=== PATIENT | female | born 1930 | race Caucasian/White ===

== ENCOUNTER 2017-12-22 15:53 | Emergency (ER) | payer OTHER, MEDICARE ==
--- NOTE | 2017-12-22 15:54 | PDOC ---
History of Present Illness - General Chief Complaint: Urinary Problem Stated Complaint: URINE PROBLEM Time Seen by Provider: 12/22/17 15:54 History Source: Patient Exam Limitations: No Limitations - History of Present Illness Initial Comments: 12/22/17 16:21 87 year old female with PMH frequent UTIs, scoliosis, arthritis presents to ED complaining of dysuria x2 weeks and right back pain since today. She denies fever, chills, nausea, vomiting, diarrhea, abdominal pain, lightheadedness, chest pain, shortness of breath, weakness. PCP - Dr. Golden Past History - Past Medical History Allergies/Adverse Reactions: Allergies Allergy/AdvReac Type Severity Reaction Status Date / Time aspirin AdvReac Mild Nausea Verified 12/22/17 16:25 Home Medications: Ambulatory Orders Acetaminophen [Tylenol] 325 mg PO BID PRN tablet 03/15/13 Cholecalciferol (Vitamin D3) [Vitamin D3] 2,000 unit PO DAILY tablet 03/09/14 [place]-3 Fatty Acids [Fish Oil] 500 mg PO DAILY capsule 03/09/14 Miconazole Nitrate [Monistat Topical Cream -] 1 applic TP DAILY 7 Days #7 tube 12/22/17 Sulfamethoxazole/Trimethoprim [Bactrim Ds -] 1 tab PO BID 14 Days #27 tablet Anemia: No Asthma: No Cancer: No Cardiac Disorders: No CVA: No COPD: No Dementia: No Diabetes: No Dialysis: No GI Disorders: No Disorders: No HTN: Yes Hypercholesterolemia: No Kidney Stones: Yes Liver Disease: No Seizures: No Thyroid Disease: Yes - Surgical History Abdominal Surgery: Yes Appendectomy: No Cardiac Surgery: No Cholecystectomy: No Lung Surgery: No Neurologic Surgery: No - Immunization History Td Vaccination: No Immunization Up to Date: No - Suicide/Smoking/Psychosocial Hx Smoking Status: No Smoking History: Never smoked Number of Cigarettes Smoked Daily: 0 Review of Systems - Review of Systems Able to Perform ROS?: Yes Comments:: 12/22/17 16:22 General: denies fever, chills, night sweats, generalized weakness. HEENT: denies sore throat, rhinorrhea, ear pain. Heart: denies chest pain, palpitations, syncope, lower extremity swelling. Respiratory: denies shortness of breath, cough, sputum production, hematemesis. Abdomen: denies abdominal pain, nausea, vomiting, diarrhea, constipation, blood in stool. : admits to dysuria. denies urinary frequency, hematuria, urinary incontinence. Back: admits to back pain. denies flank pain. Neurological: denies headache, dizziness, numbness, tingling, weakness. Skin: denies rash, laceration, abrasion. *Physical Exam - Physical Exam Comments: 12/22/17 16:22 Appearance: comfortable. obese. HEENT: head is normocephalic, atraumatic. EOMI. PERRLA. Neck: supple. Full ROM. Heart: regular rhythm. no murmurs, rubs or gallops. Lungs: clear to auscultation bilaterally. no crackles, rhonchi or wheezing. no stridor. Abdomen: soft, nontender. normal bowel sounds. no rebound, guarding, masses. Back: no CVA tenderness. tenderness to palpation of right lateral thoracic back area. Extremities: Peripheral pulses intact. No lower extremity edema. Neurological: Alert. Oriented x3. CN 2-12 grossly intact. Moves all four extremities. ED Treatment Course - LABORATORY CBC & Chemistry Diagram: 12/22/17 16:35 12/22/17 16:35 Medical Decision Making - Medical Decision Making 12/22/17 16:23 87 year old female with PMH multiple UTIs, scoliosis, arthritis, HTN presents to ED complaining of 2 weeks of dysuria and right back pain today. No fever, chills, chest pain, shortness of breath, abdominal pain, nausea, vomiting, weakness. No CVA tenderness. Pain to palpation of right lateral thoracic area. Initial Vital Signs Temp Pulse Resp BP Pulse Ox 99.0 F 50 L 18 176/74 97 12/22/17 15:54 12/22/17 15:54 12/22/17 15:54 12/22/17 15:54 12/22/17 15:54 Afebrile. Bradycardic at 50 bpm. Hypertensive 176/74. No hypoxia. Pending UA, UC, CMP, CBC, Blood cultures. 12/22/17 18:24 No leukocytosis. *DC/Admit/Observation/Transfer Diagnosis at time of Disposition: Vulvovaginal candidiasis - Discharge Dispostion Disposition: HOME Condition at time of disposition: Good Decision to Admit order: No - Prescriptions Prescriptions: Miconazole Nitrate [Monistat Topical Cream -] 1 applic TP DAILY 7 Days #7 tube Sulfamethoxazole/Trimethoprim [Bactrim Ds -] 1 tab PO BID 14 Days #27 tablet - Referrals Referrals: Aiden Golden MD [Primary Care Provider] - - Patient Instructions Printed Discharge Instructions: DI for Vaginal Yeast Infection, DI for Urinary Tract Infection (UTI) Additional Instructions: You were seen today for burning with urination. Your urine analysis revealed a urinary tract infection. You have a vaginal yeast infection. You were given the first dose of an antibiotic to treat your urinary infection. I have sent a prescription for Monistat to treat your yeast infection to your pharmacy. I have prescribed you Bactrim (antibiotic) and sent the prescription to your pharmacy. Take all of your pills as instructed, do not miss any doses of your antibiotic. Take probiotics along with your antibiotics. Stay hydrated, drink lots of clear fluids like water. Please follow up with your primary care provider within 7 days. Please bring the paperwork given to you today with you for this appointment. Return to the Emergency Department for increasing pain, blood in urine, flank pain, back pain, abdominal pain, fever, chills, chest pain, shortness of breath , nausea, vomiting or any other new, worsening or concerning symptoms. - Post Discharge Activity
[2017-12-22 16:25] VITALS: BP 176/74; PULSE 50; TEMP 99; BMI 36.8
--- NOTE | 2017-12-22 16:27 | PDOC ---
Attending Attestation - Resident Resident Name: Ebonie Beth - ED Attending Attestation I have performed the following: I have examined & evaluated the patient, The case was reviewed & discussed with the resident, I agree w/resident's findings & plan, Exceptions are as noted - HPI HPI: 12/22/17 16:25 87 yo F c/ hx of HTN, frequent UTIs presents with dysuria x 2 weeks. Reports two weeks of persistent fevers. Noted today that there was some R sided flank pain. No fevers, chills, nausea, vomiting, abdominal pain. Came into the ED for an evaluation. - Physicial Exam PE: 12/22/17 16:26 GENERAL: Awake, alert, and fully oriented, in no acute distress HEAD: No signs of trauma EYES: EOMI, sclera anicteric, conjunctiva clear ENT: Auricles normal inspection, hearing grossly normal, nares patent, Moist mucosa NECK: Normal ROM, supple LUNGS: Breath sounds equal, clear to auscultation bilaterally. No wheezes, and no crackles HEART: Regular rate and rhythm, normal S1 and S2, no murmurs, rubs or gallops ABDOMEN: Soft, nontender, No guarding, no rebound. No masses BACK: mild R sided CVA tenderness. EXTREMITIES: Normal range of motion, no edema. No clubbing or cyanosis. No cords, erythema, or tenderness NEUROLOGICAL: Cranial nerves II through XII grossly intact. Normal speech, normal gait SKIN: Warm, Dry, normal turgor, no rashes or lesions noted. - Medical Decision Making 12/22/17 16:26 Vital Signs Temp Pulse Resp BP Pulse Ox 99.0 F 50 L 18 176/74 97 12/22/17 15:54 12/22/17 15:54 12/22/17 15:54 12/22/17 15:54 12/22/17 15:54 I suspect that the patient may have pyelonephritis. Labs, UA/UC, blood cultures, reassess. 12/22/17 16:52 Pt also reports that she has been using a lot of soap and water to clean her vagina. Today, she started to notice significant skin irritation around her vagina. Denies vaginal discharge. External pelvic exam demonstrates erythematous, tender rash in and around the vagina suggestive of fungal vaginitis. Will prescribe monostat cream. 12/22/17 17:46 CBC, BMP 12/22/17 16:35 12/22/17 16:35 CMP Sodium 135 mmol/L (136-145) L 12/22/17 16:35 Potassium 3.8 mmol/L (3.5-5.1) 12/22/17 16:35 Chloride 102 mmol/L (98-107) 12/22/17 16:35 Carbon Dioxide 28 mmol/L (22-28) 12/22/17 16:35 Anion Gap 5 (8-16) L 12/22/17 16:35 BUN 17 mg/dl (7-18) 12/22/17 16:35 Creatinine 0.7 mg/dl (0.6-1.3) 12/22/17 16:35 Creat Clearance w eGFR > 60 (>60) 12/22/17 16:35 Random Glucose 97 mg/dl (74-106) D 12/22/17 16:35 Calcium 8.7 mg/dl (8.4-10.2) 12/22/17 16:35 Total Bilirubin 0.6 mg/dl (0.2-1.0) 12/22/17 16:35 AST 21 U/L (10-42) 12/22/17 16:35 ALT 13 U/L (10-40) 12/22/17 16:35 Alkaline Phosphatase 68 U/L (32-92) 12/22/17 16:35 Total Protein 6.6 g/dl (6.4-8.3) 12/22/17 16:35 Albumin 3.8 g/dl (3.5-5.0) 12/22/17 16:35 12/22/17 18:19 Urine Test Results Urine Color Yellow 12/22/17 16:25 Urine Appearance Clear 12/22/17 16:25 Urine pH 6.5 (4.5-8) 12/22/17 16:25 Ur Specific [place] 1.010 (1.005-1.025) 12/22/17 16:25 Urine Protein Negative (NEGATIVE) 12/22/17 16:25 Urine Glucose (UA) Trace (NEGATIVE) 12/22/17 16:25 Urine Ketones Negative (NEGATIVE) 12/22/17 16:25 Urine Blood Negative (NEGATIVE) 12/22/17 16:25 Urine Nitrite Negative (NEGATIVE) 12/22/17 16:25 Urine Bilirubin Negative (NEGATIVE) 12/22/17 16:25 Ur Leukocyte Esterase Trace (NEGATIVE) H 12/22/17 16:25 Trace leukocytes. No elevated WBC. Pt otherwise nontoxic appearing. Will treat as early onset pyelonephritis. Bactrim. Will also treat as candidal vaginitis and have patient follow up with PMD. Return precautions given.
[2017-12-22 16:46] LABS: PH,URINE 6.5 (4.5-8); URINE APPEARANCE Clear; URINE BILIRUBIN Negative (NEGATIVE); URINE COLOR Yellow; URINE GLUCOSE (UA) Trace (NEGATIVE); URINE KETONE Negative (NEGATIVE); URINE NITRITE Negative (NEGATIVE); URINE PROTEIN Negative (NEGATIVE); URINE UROBILINOGEN 0.2 (0.2-1.0)
[2017-12-22 16:57] LABS: BASO % 1.1 % (0-2.0); EOS % 1.8 % (0-4.5); HEMATOCRIT 37.9 % (32.4-45.2); HEMOGLOBIN 13.1 GM/dl (10.7-15.3); LYMPH % 22.7 % (8-40); MCH 32.2 pg (25.7-33.7); MCHC 34.7 g/dl (32.0-36.0); MEAN CELL VOLUME 92.9 fl (80-96); MEAN PLT VOLUME 6.6 fl (7.5-11.1); MONO % 9.2 % (3.8-10.2); NEUT % 65.2 % (42.8-82.8); PLATELET COUNT 247 K/MM3 (134-434); RBC 4.08 M/mm3 (3.60-5.2); RDW 13.5 % (11.6-15.6)
[2017-12-22 17:21] LABS: ALBUMIN 3.8 g/dl (3.5-5.0); ALK PHOS 68 U/L (32-92); ANION GAP 5 (8-16); BILIRUBIN,TOTAL 0.6 mg/dl (0.2-1.0); BLOOD UREA NITROGEN 17 mg/dl (7-18); CALCIUM 8.7 mg/dl (8.4-10.2); CHLORIDE 102 mmol/L (98-107); CO2 28 mmol/L (22-28); CREATININE 0.7 mg/dl (0.6-1.3); GLUCOSE,RANDOM 97 mg/dl (74-106); POTASSIUM 3.8 mmol/L (3.5-5.1); SGOT/AST 21 U/L (10-42); SGPT/ALT 13 U/L (10-40); SODIUM 135 mmol/L (136-145); TOT PROT 6.6 g/dl (6.4-8.3)
[2017-12-22 18:09] LABS: URINE LEUK ESTERASE TRACE (NEGATIVE)
[2017-12-22] MEDS ORDERED: SULFAMETHOXAZOLE/TRIMETHOPRIM 800MG/160MG D.S. TABLET PO ONE (18:23)
[2017-12-22] MEDS ORDERED: SULFAMETHOXAZOLE/TRIMETHOPRIM 800MG/160MG D.S. TABLET ONE (18:30)
[2017-12-22 19:24] LABS: EPI CELLS FEW /HPF; URINE BACTERIA FEW /hpf (NEGATIVE); URINE RBC 0-2 /hpf (0-3)
== END 2017-12-22 18:36 | disposition home or self-care (01) ==
LOC: FER 15:53
DX: B37.3 Candidiasis of vulva and vagina (principal); Z87.440 Personal history of urinary (tract) infections; I10 Essential (primary) hypertension; M19.90 Unspecified osteoarthritis, unspecified site
CPT/HCPCS: 36415; 80053; 81003; 81015; 85025; 87040; 87086; 99283-25

== ENCOUNTER 2020-06-28 16:07 | Emergency (ER) | payer OTHER, MEDICARE ==
[2020-06-28 16:20] VITALS: BP 180/83; PULSE 87; TEMP 96.4; BMI 33.6
[2020-06-28] MEDS ORDERED: CEFTRIAXONE 1,000 MG in DEXTROSE 5%-WATER - 50 ML IVPB ONE (16:51)
[2020-06-28] MEDS ORDERED: VANCOMYCIN 1,000 MG in DEXTROSE 5%-WATER - 250 ML IVPB ONE (16:51)
[2020-06-28] MEDS ORDERED: cefTRIAXone SODIUM 1 GM VIAL ONE (17:28)
[2020-06-28] MEDS ORDERED: VANCOMYCIN 1,000 MG VIAL (RESTRICTED TO ID ONLY) ONE (17:30)
[2020-06-28] MEDS ORDERED: ACETAMINOPHEN 325 MG TABLET (FP) ONE (17:54)
[2020-06-28] MEDS ORDERED: morphine CARPU-JECT 4 MG/1 ML DISP.SYRIN IVPUSH ONE (18:25)
[2020-06-28] MEDS ORDERED: morphine SULFATE 4 MG/ML VIAL ONE (18:27)
[2020-06-28 18:35] LABS: BASO % 0.3 % (0-2.0); EOS % 1.8 % (0-4.5); HEMATOCRIT 34.8 % (32.4-45.2); HEMOGLOBIN 11.3 GM/dl (10.7-15.3); LYMPH % 20.9 % (8-40); MCH 30.8 pg (25.7-33.7); MCHC 32.6 g/dl (32.0-36.0); MEAN CELL VOLUME 94.5 fl (80-96); MEAN PLT VOLUME 7.2 fl (7.5-11.1); MONO % 9.7 % (3.8-10.2); NEUT % 67.3 % (42.8-82.8); PLATELET COUNT 285 K/MM3 (134-434); RBC 3.68 M/mm3 (3.60-5.2); RDW 13.6 % (11.6-15.6); WHITE BLOOD COUNT 4.7 K/mm3 (4.0-10.8)
[2020-06-28 18:49] LABS: ALBUMIN 3.4 g/dl (3.4-5.0); BILIRUBIN,TOTAL 1.3 mg/dl (0.2-1); CALCIUM 8.7 mg/dl (8.5-10); CREATININE 0.7 mg/dl (0.55-1.3); TOT PROT 6.3 g/dl (6.4-8.2)
[2020-06-28 18:50] LABS: POTASSIUM 4.8 mmol/L (3.5-5.1)
[2020-06-28 20:19] LABS: ERYTHROCYTE SEDIMENTATION RATE 57 mm/hr (0-30)
[2020-06-28 20:39] LABS: N-TERMINAL BNP 297.2 pg/ml (5-450)
== END 2020-06-28 18:57 | disposition left against medical advice (07) ==
LOC: FER 16:07
PROC: 3E03329 Introduction of Other Anti-infective into Peripheral Vein, Percutaneous Approach (ICD-10-PCS; principal; 2020-06-28)
PROC: 3E033NZ Introduction of Analgesics, Hypnotics, Sedatives into Peripheral Vein, Percutaneous Approach (ICD-10-PCS; 2020-06-28)
PROC: 3E03329 Introduction of Other Anti-infective into Peripheral Vein, Percutaneous Approach (ICD-10-PCS; 2020-06-28)
DX: R22.43 Localized swelling, mass and lump, lower limb, bilateral (principal); H61.21 Impacted cerumen, right ear
CPT/HCPCS: 36415; 71045-TC-FY; 80053; 82550; 83880; 84484; 85025; 85651; 86140; 99285-25